=== PATIENT | female | born 1950 | race Caucasian/White ===

== ENCOUNTER 2023-11-25 02:58 | Emergency (ER) | payer MEDICARE | END 2023-11-25 06:00 | disposition home or self-care (01) | LOC: CSHERS 02:58 | DX: S52.502A Unspecified fracture of the lower end of left radius, initial encounter for closed fracture (principal); S00.83XA Contusion of other part of head, initial encounter; S80.01XA Contusion of right knee, initial encounter; W18.09XA Striking against other object with subsequent fall, initial encounter | CPT/HCPCS: 70450 ==